=== PATIENT | male | born 1965 | race Caucasian/White ===

== ENCOUNTER 2019-01-06 21:52 | Inpatient (IN) | payer OTHER ==
[~2019-01-06] VITALS: Ht 170.2 cm; Wt 132.8 kg
[~2019-01-06 21:52] MED LIST: ALBIPROI INH; ALBU3IS INH; ALBU90OI61 INH; AMLOD-VALSA-HC1 EAC1 PO; ASPI81CH; ATEN100; ATEN25 PO; AZIT250 PO; BUPR100 PO; CEPH500 PO; DIAZ10; Flomax0.4 MG PO; HYDACE10A; HYDMOR2 PO; KETO10 PO; Norco 5-325 Ta1 EACH PO; OMEP20ER; OXYACE5T PO; PARO10; PRED10 PO; PROM25 PO; ROSU10TA PO; RXOXYACE PO; Zantac150 MG PO; [UNRECOGNIZED DRUG - REMARK]; [UNRECOGNIZED DRUG - REMARK]
[2019-01-06 22:59] LABS: BASOPHILS ABSOLUTE AUTO 0.06 K/mm3 (0.00-0.23); BASOPHILS PERCENT AUTO 1 % (0-2); EOSINOPHILS ABSOLUTE AUTO 0.35 K/mm3 (0.00-0.68); EOSINOPHILS PERCENT AUTO 4 % (0-6); Hematocrit 42.8 % (37.0-53.0); Hemoglobin 14.8 g/dL (13.5-17.5); IMMATURE GRAN ABSOLUTE AUTO 0.09 K/mm3 (0.00-0.10); IMMATURE GRAN PERCENT AUTO 1 % (0-1); LYMPHOCYTES PERCENT AUTO 38 % (21-46); MONOCYTES ABSOLUTE AUTO 0.65 K/mm3 (0.16-1.47); MONOCYTES PERCENT AUTO 8 % (4-13); Mean Corpuscular HGB 31.8 pg (26.0-34.0); Mean Corpuscular HGB Conc 34.6 g/dL (31.5-36.5); Mean Corpuscular Volume 92 fL (80-100); Mean Platelet Volume 10.7 fL (9.1-12.4); NEUTROPHILS PERCENT AUTO 48 % (41-73); Platelet Count 264 K/mm3 (150-400); RDW Coefficient Variation 11.9 % (11.7-14.2); Red Blood Cell Count 4.66 M/mm3 (4.30-5.90); White Blood Cell Count 7.95 K/mm3 (4.00-11.30)
[2019-01-06 23:14] LABS: International Normalized Ratio 0.93; Prothrombin Time Results 9.8 Sec (9.7-11.5)
[2019-01-06] MEDS ORDERED: BACL10 PO (23:16)
[2019-01-06] MEDS ORDERED: NAPR550 PO (23:16)
[2019-01-06] MEDS ORDERED: HYDR1TAB94 PO (23:17)
[2019-01-06 23:18] LABS: Alanine Aminotransfer (ALT/SGP 31 U/L (12-78); Albumin, Blood 3.7 g/dL (3.4-5.0); Albumin/Globulin Ratio 1.2 (0.8-1.8); Alk Phos 107 U/L (50-136); Anion Gap 9 mmol/L (6-16); Aspartate Aminotrans (AST/SGOT 18 U/L (12-37); Bilirubin, Total 0.3 mg/dL (0.1-1.0); Blood Urea Nitrogen 16 mg/dL (8-24); Bun/Creatinine Ratio 19.4 (12.0-20.0); CO2, Blood 25 mmol/L (21-32); Calcium, Blood 9.1 mg/dL (8.5-10.1); Chloride, Blood 111 mmol/L (98-108); Creatinine, Blood 0.83 mg/dL (0.60-1.20); Globulin, Blood 3.1 g/dL (2.2-4.0); Glomerular Filtration Rate >60 (60-); Glucose, Blood 156 mg/dL (70-99); Potassium, Blood 3.8 mmol/L (3.5-5.5); Sodium, Blood 145 mmol/L (136-145); Total Protein, Blood 6.8 g/dL (6.4-8.2); Troponin I <0.015 ng/mL (0.000-0.040)
[2019-01-06] MEDS ORDERED: Xalatan2.5 ML BOTHEYES (23:18)
[2019-01-07 08:43] LABS: Hematocrit 42.4 % (37.0-53.0); Hemoglobin 14.3 g/dL (13.5-17.5); Mean Corpuscular HGB 30.8 pg (26.0-34.0); Mean Corpuscular HGB Conc 33.7 g/dL (31.5-36.5); Mean Corpuscular Volume 91 fL (80-100); Mean Platelet Volume 10.8 fL (9.1-12.4); Platelet Count 257 K/mm3 (150-400); RDW Coefficient Variation 11.9 % (11.7-14.2); RDW Standard Deviation 39.8 fL (35.1-46.3); Red Blood Cell Count 4.65 M/mm3 (4.30-5.90); White Blood Cell Count 7.32 K/mm3 (4.00-11.30)
[2019-01-07 09:13] LABS: Alanine Aminotransfer (ALT/SGP 29 U/L (12-78); Albumin, Blood 3.5 g/dL (3.4-5.0); Albumin/Globulin Ratio 1.1 (0.8-1.8); Alk Phos 94 U/L (50-136); Anion Gap 7 mmol/L (6-16); Aspartate Aminotrans (AST/SGOT 12 U/L (12-37); Bilirubin, Total 0.3 mg/dL (0.1-1.0); Blood Urea Nitrogen 16 mg/dL (8-24); Bun/Creatinine Ratio 21.4 (12.0-20.0); CO2, Blood 25 mmol/L (21-32); Calcium, Blood 8.6 mg/dL (8.5-10.1); Chloride, Blood 110 mmol/L (98-108); Creatinine, Blood 0.75 mg/dL (0.60-1.20); Globulin, Blood 3.2 g/dL (2.2-4.0); Glomerular Filtration Rate >60 (60-); Glucose, Blood 123 mg/dL (70-99); Potassium, Blood 3.9 mmol/L (3.5-5.5); Sodium, Blood 142 mmol/L (136-145); Total Protein, Blood 6.7 g/dL (6.4-8.2)
[2019-01-07] MEDS ORDERED: TIMOPTIC 0.5%1 EACH BOTHEYES (13:53)
[2019-01-07] MEDS ORDERED: Hydrocodone-Ap1 EA20 PO (14:08)
--- NOTE | 2019-01-07 18:06 | NUR ---
SHIFT SUMMARY PT IS A NEW ADMISSION FROM ED THIS AFTERNOON. PT IS ALERT AND ORIENTED X3. PT HAS WEAKNESS TO LEFT SIDE OF BODY DUE TO CVA. PT AMBULATED WITH PHYSICAL THERAPY THIS SHIFT AND AMBULATED IN LEE. PT HAS HAD NO COMPLAINTS SINCE ADMISSION. PT ABLE TO EAT AND DRINK WITHOUT DIFFICULTY. NO ACUTE DISTRESS AT THIS TIME. PT UP IN CHAIR AT BEDSIDE. CALL LIGHT IN REACH AND BED ALARM ON FOR SAFETY. WILL CONTINUE TO MONITOR AND REPORT TO ONCOMING RN.
--- NOTE | 2019-01-08 05:03 | NUR ---
Rn summary: Patient is alert and oriented. He is anxious about his health and his new diagnosis and numbness on his left side. Pt order caller are very strong and no deficit was noted. Pt is able to lift left leg better than previously. Pt states he is numb on his left foot, left hand fingers and elbow. Pt did state he did have some tingling and numbness in his face and under his left eye up into his hairline last night. A little better at 0200. Pt does have a significant snoring problem. He has awakened and states he feels like he is having some trouble breathing. Pt watched 2 times while sleeping and he does appear to have sleep apnea with 30 second pauses at times. Pt O2 sats are running at 95-97%. Pt states he has had trouble like this in the past but feels he is more aware of it tonight. Again talked with me at length about his situation and his fears. Discussed with RT, they suggest a sleep study while here. Pt is able to walk to BR with 1 assist and walker. Pt BP at the beginning of shift was 179/115. Medicated with apresoline 10mg. BP down to 145/102. This am vital signs showed BP of 168/103. Pt is on tele and rhythm is NSR rate 62 per telecommunication tower technician. is at bedside. Call light in reach. Will continue to monitor.
--- NOTE | 2019-01-08 15:54 | NUR ---
SHIFT SUMMARY PATIENT STEADY AND STRONG ON BOTH FEET. HE IS USING FWW AND GAIT BELT FOR MOBILITY. UP X1 ASSIST. CALLS APPROPRIATLY FOR HELP TO GET UP. FULLY A&O. NUMBNESS/TINGLING ON VARIOUS PLACES LEFT SIDE OF BODY. HYPERTENSION STILL PRESENT. 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
--- NOTE | 2019-01-09 04:02 | NUR ---
PATIENT REPORTS JAIN AND GENERAL PAIN. BP 169/115. NORCO GIVEN PER EMAR FOR PAIN AND IV APRESOLINE 10 MG GIVEN FOR SBP >160. WILL REASSESS.
--- NOTE | 2019-01-09 04:04 | NUR ---
SHIFT SUMMARY PATIENT BP WAS 124/83 AT SHIFT CHANGE AND NOW 169/115 WITH JAIN AND PAIN. WILL REASSESS. AXOX 4 AND ONE ASSIST WITH W/FWW AND GAIT BELT. PATIENT REPORTS LS WEAKNESS IMPROVING. PIV REMAINS INTACT. JIG BORER REPORTS NSR 78. SPOUSE AT BEDSIDE. DENIES SOB AND N/V. COOPERATIVE WITH CARE. CALL LIGHT IN REACH. BED IN LOWEST POSITION. WILL CONTINUE TO MONITOR UNTIL DAY SHIFT NURSE ASSUMES CARE.
--- NOTE | 2019-01-09 05:16 | NUR ---
PATIENT BP REASSESSED AT 164/109 AFTER APRESOLINE IV 10 MG. WILL CONTINUE TO MONITOR.
[2019-01-09 05:56] LABS: CHOL/HDL RATIO 5.7; Cholesterol 198 mg/dL (50-200); HDL Cholesterol 35 mg/dL (>39); LDL/HDL RATIO 3.3; Low Density Lipoprotein Chol 116 mg/dL (0-110); Triglycerides 236 mg/dL (30-160); Very Low Density Lipoprot Chol 47 mg/dL (6-32)
--- NOTE | 2019-01-09 11:45 | NUR ---
HE IS RESTING IN BED NOW AFTER AMBULATING THE LEE WITH PT AND SITTING UP FOR AWHILE. HE ALSO AMBULATED TO AND FROM THE BATHROOM WITH THE WALKER, GAITBELT AND 1 ASSIST. ROUNDED. SHE WANTS HIM TO STAY FOR BLOOD PRESSURE CONTROL AND THE NATIONAL ACCOUNTS RECRUITER IS WORKING ON AN IRU DISCHARGE.
--- NOTE | 2019-01-09 14:16 | NUR ---
I RECIEVED A CONSENT TO ASSIST CARE FOR CLIENT TODAY.
--- NOTE | 2019-01-09 14:44 | NUR ---
STARTING LISINOPRIL NOW.
--- NOTE | 2019-01-09 17:07 | NUR ---
HE WORKED WELL WITH PT AND OT TODAY. HE IS DISAPOINTED THAT HE NEEDS TO GO TO INPATIENT REHAB FROM HERE. HE WANTS TO GO HOME. HE SAID TODAY IS A GOOD DAY. TELE NSR.VSS. HE AMBULATES WITH A WALKER, GAIT BELT AND 1 ASSIST.
--- NOTE | 2019-01-10 04:53 | NUR ---
SHIFT SUMMARY: PT ALERT AND ORIENTED X3, SLIGHTLY FORGETFUL AT TIMES, HOWEVER ABLE FOLLOW ALL SIMPLE VERBAL COMMANDS. PTS AT SIDE DURING NIGHT. PT DENIES PAIN, NAUSEA OR VOMITING. PT ABLE TO TRANSFER AND AMBULATED VIA 2 WHEELED WALKER AND GAIT BELT X 1 STANDBY ASSIST WITH GAIT SLOW AND UNSTEADY. PTS BED LOW FOWLERS, CALL LIGHT AT SIDE.
--- NOTE | 2019-01-10 17:55 | NUR ---
Mr. Navarro was personable and very talkative. 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 He tells me that staying active and useful is important to him. That's why the events leading to this hospitalization are so disturbing to him. He denied the symptoms for many hours, and blames himself for "not knowing better." Mr. Navarro will benefit from continued encouragement and education. He had many questions regarding what to expect from in-patient rehab. He has a moderate geronimo in God and was appreciative of spiritual certified drug counselor and prayer. We had an easy rapport, and he appeared to benefit from being heard and affirmed. [employer] services will remain available.
--- NOTE | 2019-01-10 19:24 | NUR ---
HE HAS HAD A GOOD DAY BUT STILL DISAPPOINTED HE IS GOING TO [place] FOR REHAB INSTEAD OF GOING HOME. PLAN IS FOR DISCHARGE TOMORROW AT 9 AM BY W/C JUN. HIS WAS EXPECTING A FAX TO [facility], BUT IT DID NOT ARRIVE. HE RECEIVED IV HYDRALAZINE X1 TODAY FOR SBP OVER 160. NO COMPLAINTS. AMBULATES WITH GAIT BELT AND WALKER.
--- NOTE | 2019-01-11 04:21 | NUR ---
I AGREE WITH JAMIE LAY.
--- NOTE | 2019-01-11 04:26 | NUR ---
PT RESTED COMFORTABLY ALL EVENING WITH SPOUSE SPENDING NIGHT. PT IS TENTATIVELY PLANNED TO BE DISCHARGED THIS AM TO [facility] FOR REHAB AND WILL BE TRANSPORTED VIA AMBULANCE. PT DID STRUGGLE TO TRANSFER AND AMBULATE LAST EVENING X 2 STANDBY ASSIST WHILE GAIT BELT AND WALKER UTILIZED (RIGHT LEG WEAKNESS). PT DENIES PAIN OR NAUSEA.
[2019-01-11] MEDS ORDERED: ASPI81CH PO (08:15)
[2019-01-11] MEDS ORDERED: HYDCHL25 PO (08:16)
[2019-01-11] MEDS ORDERED: ATOR80 PO (08:16)
[2019-01-11] MEDS ORDERED: LISI20 PO (08:16)
--- NOTE | 2019-01-11 12:43 | NUR ---
DISCHARGE SUMMARY PATIENT A&O X4. TRANSFERED TO [place] [facility]IA [facility]. ESCORTED OUT BY [facility], AT HIS SIDE. ALL BELONGINGS IN HAND. TELE D/C. IV D/C, WNL. NO ACUTE CHANGES. NEURO CHECK WNL.
== END 2019-01-11 09:44 | DRG 65 ==
LOC: ER 21:52 → ERHOLD 01-07 01:11 → MEDS 01-07 01:11 → ENPENDDIS 01-11 09:39 → MEDS 01-11 09:44
PROVIDERS: Emergency Medicine; Family Medicine; ADMIT Internal Medicine
DX: I63.9 Cerebral infarction, unspecified (principal); Z68.41 Body mass index [BMI] 40.0-44.9, adult; G81.94 Hemiplegia, unspecified affecting left nondominant side; I10 Essential (primary) hypertension; E66.01 Morbid (severe) obesity due to excess calories; F17.220 Nicotine dependence, chewing tobacco, uncomplicated
CPT/HCPCS: 36415; 70450; 70496; 80053; 80061; 84484; 85025; 85027; 85610; 85730; 93005; 93010; 93306; 93880; 94760; 96372-59; 97110; 97116; 97163; 97166; 97530; 97535; 99285-25; J0360; J1650; Q9967

== ENCOUNTER 2019-09-29 21:39 | Emergency (ER) | payer OTHER ==
[~2019-09-29] VITALS: Ht 170.2 cm; Wt 121.6 kg
[~2019-09-29 21:39] MED LIST changes: +ASPI81CH PO; +ATOR80 PO; +BACL10 PO; +HYDCHL25 PO; +HYDR1TAB94 PO; +Hydrocodone-Ap1 EA20 PO; +LISI20 PO; +NAPR550 PO; +TIMOPTIC 0.5%1 EACH BOTHEYES; +Xalatan2.5 ML BOTHEYES
[2019-09-29] MEDS ORDERED: CLOP75 PO (22:01)
[2019-09-29] MEDS ORDERED: ATOR80 PO (22:02)
[2019-09-29] MEDS ORDERED: LISI20 PO (22:02)
[2019-09-29] MEDS ORDERED: Protonix40 MG PO (22:03)
[2019-09-30] MEDS ORDERED: METPRE4DP PO (00:27)
[2019-09-30] MEDS ORDERED: TIZA4 PO (00:27)
== END 2019-09-30 00:38 | disposition home or self-care (01) ==
LOC: ER 21:39
DX: M54.16 Radiculopathy, lumbar region (principal); I10 Essential (primary) hypertension; Z87.891 Personal history of nicotine dependence; Z79.899 Other long term (current) drug therapy; Z79.01 Long term (current) use of anticoagulants; Z79.82 Long term (current) use of aspirin
CPT/HCPCS: 36415; 96374; 96375; 99283-25; J1100; J1170; J1885; J2405

== ENCOUNTER 2022-03-17 13:31 | Emergency (ER) | payer OTHER ==
[~2022-03-17] VITALS: Ht 170.2 cm; Wt 124.7 kg
[~2022-03-17 13:31] MED LIST changes: +CLOP75 PO; +METPRE4DP PO; +Protonix40 MG PO; +TIZA4 PO
[2022-03-17] MEDS ORDERED: Prednisone20 MG PO (17:45)
== END 2022-03-17 18:14 | disposition home or self-care (01) ==
LOC: ER 13:31
DX: M79.672 Pain in left foot (principal); I10 Essential (primary) hypertension; G80.9 Cerebral palsy, unspecified; Z86.73 Personal history of transient ischemic attack (TIA), and cerebral infarction without residual deficits; Z87.891 Personal history of nicotine dependence
CPT/HCPCS: 73630; 93971; J1885; J7512

== ENCOUNTER 2024-10-01 08:48 | Day surgery (SDC) | payer OTHER ==
[~2024-10-01] VITALS: Ht 170.2 cm; Wt 120.9 kg
[~2024-10-01 08:48] MED LIST changes: +BACL20 PO; +FAMO20 PO; +Prednisone20 MG PO; +propofoL 50 ML IV ONE
[2024-10-01 09:53] VITALS: BP 163/91
[2024-10-01] MEDS ORDERED: NS 500 ML IV SCH (10:00)
--- NOTE | 2024-10-01 10:43 | NUR ---
10/01/24 1043 Wyatt Olvera History, Chart, Medications and Allergies reviewed before start of procedure. MONITOR INTACT WITH CONTINUOUS PULSE OXIMETRY, CONTINUOUS END TITAL CO2, AND INTERMITTENT BLOOD PRESSURE. 3-LEAD EKG REVIEWED WITH PHYSICIAN PRIOR TO START OF PROCEDURE. O2 VIA POM INTACT THROUGHOUT SEDATION/PROCEDURE.
[2024-10-01 11:07] VITALS: BP 130/74
--- NOTE | 2024-10-01 11:07 | NUR ---
PT TO DAY SURGERY STEP DOWN FROM COLONOSCOPY; BEDSIDE REPORT RECEIVED. PT IS AWAKE, ALERT AND ORIENTED; ABLE TO MOVE SELF IN BED. PT HAS NO COMPLAINTS.
[2024-10-01 11:24] VITALS: BP 143/96
--- NOTE | 2024-10-01 11:24 | NUR ---
PT TOLERATING PO FLUIDS WELL. Discharge instructions reviewed with patient. Patient verbalizes understanding. Copy given to patient to take home. Patient States Post-Procedure ride home has been arranged.
--- NOTE | 2024-10-01 11:40 | NUR ---
Patient up to Ambulate independently. Gait steady. Discharged via wheelchair to private car for ride home.
== END 2024-10-01 11:44 | disposition home or self-care (01) ==
LOC: ORSCMMR 08:48 → ORD 10:30 → ORSCMMR 10:30
PROVIDERS: Internal Medicine Gastroenterology
PROC: 0DBK8ZX Excision of Ascending Colon, Via Natural or Artificial Opening Endoscopic, Diagnostic (ICD-10-PCS; principal; 2024-10-01 10:30)
PROC: 0DBP8ZX Excision of Rectum, Via Natural or Artificial Opening Endoscopic, Diagnostic (ICD-10-PCS; principal; 2024-10-01 10:30)
PROC: 0DBL8ZX Excision of Transverse Colon, Via Natural or Artificial Opening Endoscopic, Diagnostic (ICD-10-PCS; principal; 2024-10-01 10:30)
DX: K62.5 Hemorrhage of anus and rectum (principal); D36.0 Benign neoplasm of lymph nodes; K63.5 Polyp of colon; D12.3 Benign neoplasm of transverse colon; K62.1 Rectal polyp; K57.30 Diverticulosis of large intestine without perforation or abscess without bleeding; I62.9 Nontraumatic intracranial hemorrhage, unspecified; I10 Essential (primary) hypertension; G47.33 Obstructive sleep apnea (adult) (pediatric); K21.9 Gastro-esophageal reflux disease without esophagitis; E66.9 Obesity, unspecified; Z68.41 Body mass index [BMI] 40.0-44.9, adult; Z79.02 Long term (current) use of antithrombotics/antiplatelets; Z79.82 Long term (current) use of aspirin; Z79.899 Other long term (current) drug therapy
CPT/HCPCS: 88305; J2704; J7040

== ENCOUNTER → 2025-09-30 | Outpatient (CLI) | payer OTHER ==
[~2025-09-30] MED LIST changes: -propofoL 50 ML IV ONE
[2025-09-30 12:32] LABS: BASOPHILS ABSOLUTE AUTO 0.04 K/mm3 (0.00-0.23); BASOPHILS PERCENT AUTO 0 % (0-2); EOSINOPHILS ABSOLUTE AUTO 0.15 K/mm3 (0.00-0.68); EOSINOPHILS PERCENT AUTO 1 % (0-6); Hematocrit 38.2 % (37.0-53.0); Hemoglobin 13.6 g/dL (13.5-17.5); IMMATURE GRAN ABSOLUTE AUTO 0.08 K/mm3 (0.00-0.10); IMMATURE GRAN PERCENT AUTO 1 % (0-1); LYMPHOCYTES ABSOLUTE AUTO 2.78 K/mm3 (0.84-5.20); LYMPHOCYTES PERCENT AUTO 23 % (21-46); MONOCYTES ABSOLUTE AUTO 1.09 K/mm3 (0.16-1.47); MONOCYTES PERCENT AUTO 9 % (4-13); Mean Corpuscular HGB Conc 35.6 g/dL (31.5-36.5); Mean Corpuscular Volume 88 fL (80-100); NEUTROPHILS ABSOLUTE AUTO 8.05 K/mm3 (1.96-9.15); NEUTROPHILS PERCENT AUTO 66 % (41-73); NRBC ABSOLUTE 0.00 K/mm3 (0.00-0.02); NRBC Auto 0.0 /100 WBC (0.0-0.2); Platelet Count 258 K/mm3 (150-400); RDW Coefficient Variation 12.1 % (11.7-14.2); RDW Standard Deviation 39.4 fL (35.1-46.3)
[2025-09-30 12:38] LABS: Anion Gap 14.0 mmol/L (3-11); Blood Urea Nitrogen 17.0 mg/dL (8-24); CO2, Blood 26.0 mmol/L (21-32); Calcium, Blood 9.2 mg/dL (8.5-10.1); Chloride, Blood 101.0 mmol/L (98-108); Creatinine, Blood 1.16 mg/dL (0.60-1.20); Glucose, Blood 103.0 mg/dL (70-99); Potassium, Blood 3.6 mmol/L (3.5-5.5); Sodium, Blood 137.0 mmol/L (136-145); Uric Acid, Blood 8.0 mg/dL (3.5-7.2)
== END ==
LOC: LAB SHORT 12:27 → LAB 12:27
PROVIDERS: Chiropractor
DX: M79.671 Pain in right foot (principal)
CPT/HCPCS: 80048; 84550; 85025

== ENCOUNTER → 2025-10-23 | Outpatient (CLI) | payer OTHER ==
[2025-10-23 12:37] LABS: Source, Urine Clean Catch
[2025-10-23 12:48] LABS: Bilirubin, Urine Neg (Neg); Color, Urine Yellow (P-Yellow); Glucose Qualitative, Urine 3+ (Normal); Ketones, Urine Neg (Neg); Leukocyte Esterase, Urine Neg (Neg); Protein, Urine Neg (Neg); Specific Gravity, Urine 1.025 (1.003-1.022); Urobilinogen, Urine NORM (Normal)
== END ==
LOC: LAB SHORT 12:34 → LAB 12:34
PROVIDERS: Family Medicine
DX: D64.9 Anemia, unspecified (principal)
CPT/HCPCS: 81003